=== PATIENT | male | born 2000 | race Caucasian/White ===

== ENCOUNTER 2024-02-24 23:02 | Emergency (ER) | payer SELFPAY ==
[~2024-02-24] VITALS: Ht 167.6 cm; Wt 77.0 kg
[2024-02-24 23:05] VITALS: O2SAT 99
[2024-02-25] MEDS: ONDANSETRON HCL 4MG/2ML INJ IV STA (01:07)
[2024-02-25 01:23] LABS: HEMATOCRIT. 46.3 % (42.0-52.0); HEMOGLOBIN. 16.4 g/dL (14.0-18.0); MEAN CORPUSCULAR HEMOGLOBIN 30.1 pg (28.0-32.0); MEAN CORPUSCULAR HGB CONC 35.3 g/dL (31.0-37.0); MEAN CORPUSCULAR VOLUME 85.2 fL (80.0-94.0); MEAN PLATELET VOLUME 9.3 fl (7.4-10.4); PLATELET 233 x1000/uL (130-400); RED BLOOD CELL COUNT 5.44 mill/uL (4.7-6.1); RED CELL DISTRIBUTION WIDTH 13.5 % (11.6-14.6); WHITE BLOOD COUNT 13.6 x1000/uL (4.5-11.0)
[2024-02-25] MEDS: ONDANSETRON 4MG ODT PO ONE (01:23)
[2024-02-25] MEDS: FAMOTIDINE 20MG TABLET PO SCH (01:23)
[2024-02-25 01:24] VITALS: TEMP 97.5
[2024-02-25] MEDS: MAGNESIUM/ALUMINUM HYDROXIDE/SIMETHICONE 30ML UDC PO STA (01:24)
[2024-02-25] MEDS: ACETAMINOPHEN 325MG TABLET PO STA (01:24)
[2024-02-25 01:26] LABS: DIFFERENTIAL COMMENT 1
[2024-02-25 01:31] LABS: CHLORIDE 103 mEq/L (98-107); POTASSIUM 4.1 mEq/L (3.5-5.1); SODIUM 138 mEq/L (136-145)
[2024-02-25 01:32] LABS: CALCIUM 10.2 mg/dL (8.7-10.4); CARBON DIOXIDE 27 mEq/L (21-32)
[2024-02-25 01:37] LABS: CREATININE 1.3 mg/dL (0.6-1.3); GLUCOSE 110 mg/dL (70-105); UREA NITROGEN BLOOD 16 mg/dL (9-23)
[2024-02-25 01:39] LABS: ALANINE AMINOTRANSFERASE 32 IU/L (10-49); ALBUMIN 4.9 g/dL (3.2-4.8); ASPARTATE AMINOTRANSFERASE 25 IU/L (<34); BILIRUBIN DIRECT 0.5 mg/dL (<=3.0); BILIRUBIN TOTAL 1.8 mg/dL (0.1-1.0)
[2024-02-25 01:40] LABS: PROTEIN TOTAL 8.1 g/dL (6.0-8.3)
[2024-02-25] MEDS ORDERED: FAMO-135 MT (02:06)
[2024-02-25] MEDS ORDERED: ACET-2708 MT (02:06)
[2024-02-25] MEDS: KETOROLAC 30MG/ML VIAL IM ONE (02:23)
[2024-02-25 04:05] VITALS: BP 128/82; PULSE 99; RESP 16; O2SAT 99
[2024-02-25 06:02] LABS: PLATELET ESTIMATE NORMAL
== END 2024-02-25 04:15 | disposition home or self-care (01) ==
LOC: ER 23:02
DX: R10.13 Epigastric pain (principal); R11.2 Nausea with vomiting, unspecified; J45.909 Unspecified asthma, uncomplicated
CPT/HCPCS: 99285; 36415; 74176; 76705; 80076; 80048; 83690; 85025; 96372; Q0162; J1885